=== PATIENT | female | born 1990 | race Caucasian/White ===

== ENCOUNTER 2016-12-22 08:37 | Emergency (ER) | payer BC, OTHER ==
[~2016-12-22] VITALS: Ht 167.6 cm; Wt 77.1 kg
[~2016-12-22 08:37] MED LIST: MTR600X PO
[2016-12-22 08:58] VITALS: TEMP 36.9; Ht 167.6 cm; Wt 77.1 kg
--- NOTE | 2016-12-22 09:50 | EMERGENCY ROOM VISIT NOTE ---
History Report prepared by Charla: Jeanna Funk Under the Supervision of: Dr. Julio Dewitt M.D. First contact with patient: 09:23 Chief Complaint: BACK INJURY Stated Complaint: LOW BACK PAIN, W/HERNIATED DISC History of Present Illness The patient is a 26 year old female who presents to the Emergency Room with complaints of persistent back pain that worsened over the past two weeks. She currently rates her discomfort as a 7/10 in severity. The patient states that she is currently 20 weeks and states that this is her second . She states that with her first she did not experiencing back pain. The patient states that she has a known herniated disc at L5/S1. She states that she has been told to put off having surgery as long as possible due to her young age. The patient states that she was 21 when she had experienced her injury. She states that she has experienced leg numbness, and she has become concerned about falling. The patient additionally reports vaginal pain. She denies any urinary symptoms. The patient denies any vaginal bleeding or trouble with her . She states that the only thing that has helped to alleviate her pain is kneeling on her hand and knees and hanging her abdomen down. Source of History: patient Onset: past two weeks Position: back Symptom Intensity: 7/10 Timing: other (persistent) Associated Symptoms: + numbness (legs), No urinary symptoms Note: Associated Symptoms: vaginal pain Review of Systems See HPI for pertinent positives & negatives. A total of 10 systems reviewed and were otherwise negative. Past Medical & Surgical Medical Problems: (1) Abdominal pain (2) Abdominal pain (3) Abdominal pain affecting (4) Back pain affecting in third trimester (5) High blood pressure affecting in third trimester, antepartum (6) (7) uterine contractions in third trimester, antepartum (8) Uterine contractions at greater than 20 weeks of gestation Family History No significant family history Social History Smoking Status: Former Smoker Alcohol Use: occasionally Marital Status: single Housing Status: lives with family Occupation Status: employed Current/Historical Medications Scheduled Multivit/Min/Iron/Fol Ac/Pren ( Vitamin), 1 TAB PO DAILY Allergies Coded Allergies: No Known Allergies (Unverified , 12/22/16) Physical Exam Vital Signs Date Time Temp Pulse Resp B/P (MAP) Pulse Ox O2 Delivery O2 Flow Rate FiO2 12/22/16 10:45 83 16 117/70 96 Room Air 12/22/16 08:58 36.9 105 16 131/81 98 Room Air Physical Exam GENERAL: Patient is in no acute distress. HEENT: No acute trauma, normocephalic atraumatic, mucous membranes moist, no nasal congestion, no scleral icterus. NECK: No stridor, no adenopathy, no meningismus, trachea is midline. LUNGS: Clear to auscultation bilaterally, no wheeze, no rhonchi, breath sounds equal. HEART: Without murmurs gallops or rubs, regular rate and rhythm. ABDOMEN: Gravid uterus. Soft, nontender, bowel sounds positive, no hernias, no peritonitis. BACK: Pain worsens with movement EXTREMITIES: No cyanosis or edema, full range of motion of all the joints without pain or difficulty, no signs for acute trauma. NEUROLOGIC: Oriented x 3, no acute motor or sensory deficits, no focal weakness. 2/4 patellar and Achilles reflexes bilaterally. SKIN: No rash, no jaundice, no diaphoresis. Medical Decision & Procedures ER Provider Diagnostic Interpretation: heart tones are 145. Radiology results as stated below per my review and radiologist interpretation: MRI LUMBAR SPINE W/O CONTRAST CLINICAL HISTORY: Back pain with right leg radiculopathy and weakness. . TECHNIQUE: Sagittal and axial T1, T2 and STIR images were obtained. COMPARISON STUDY: Conventional radiographic study dated 05/08/2012 OBSERVATIONS: Campaign Specialist images reveal mild to moderate right-sided hydronephrosis. There is a gravid uterus. The vertebral bodies and posterior elements appear intact. There is no abnormal bony signal present to suggest a marrow replacement process. L1-2: No disc protrusions or extrusions. No evidence of spinal canal or neural foraminal compromise. L2-3: No disc protrusions or extrusions. No evidence of spinal canal or neural foraminal compromise. L3-4: No disc protrusions or extrusions. No evidence of spinal canal or neural foraminal compromise. L4-5: No disc protrusions or extrusions. No evidence of spinal canal or neural foraminal compromise. L5-S1: There is an annular fissure and small central disc protrusion. There is about the anterior thecal sac. There is no foraminal stenosis. The conus medullaris and cauda equina appear normal. IMPRESSION: 1. Mild to moderate right-sided hydronephrosis 2. Gravid uterus 3. Annular fissure and small central disc protrusion at the L5-S1 level. Electronically signed by: Wyatt Gillette M.D. 12/22/2016 11:43 AM Dictated Date/Time: 12/22/2016 11:38 AM Laboratory Results Urine dip shows trace WBCs, no convincing evidence for infection ED Course 0924: The patient was evaluated in room B5. A complete history and physical exam was performed. 0951: I discussed the patient's case with Dr. Salmon, [facility]. He states that it would be nice to have an image of the patient's back. He suggesting talking radiology about an MRI. He additionally notes that the first step is pain management, noting that surgery would not be an option since the patient is . 0956: I discussed the patients case with Dr. Gillette, Radiology. He states that it would be fine for the patient to have an MRI. 1005: I reevaluated the patient and she is agreeable to the MRI. 1156: I reevaluated the patient and she is resting. I discussed the exam findings with her and I discussed the treatment plan. She verbalized complete understanding and agreement. The patients case will be consulted with basting cleaner. 1158: I discussed the patients case with Mike Olivares basting cleaner. He states that the patient is okay to go home. 1206: I reevaluated the patient and she is resting. I discussed the treatment plan with her and she verbalized complete understanding and agreement. She is ready to go home shortly. Medical Decision The patient is a 26 year old female who presents to the ED with complaints of back pain. Differential diagnoses considered include UTI, herniated disc, back pain from , fracture, labor. The patient presents with lower back pain with some radiation of pain and some numbness in her legs, especially on the right. Her reflexes were intact and equal bilaterally. Urine dip did not suggest infection. heart tones were normal. She's had no vaginal bleeding, no fever, no true fall. I discussed her case with the on-call spinal surgeon. An MRI was recommended and performed. There is a small disc herniation in the L5-S1 area. The patient is aware of her findings. No emergent process was noted by MRI. I suspect her pain is from the disc herniation coupled with the . The patient was reassured. She is being discharged with conservative measures. Tylenol, heat, physical therapy were recommended. She will follow with the spinal surgeon in the outpatient office and return here for worsening symptoms. Medication Reconcilliation Current Medication List: was personally reviewed by me Consults Time Called: [phone] Consulting Physician: Handy Jackson Returned Call: [phone] I discussed the patient's case with Handy Jackson. He states that it would be nice to have an image of the patient's back. He suggesting talking radiology about an MRI. He additionally notes that the first step is pain management, noting that surgery would not be an option since the patient is . Additional Consults: Time Called: 954 Consulted Physician: Dr. Gillette, Radiology Returned Call: [phone] Additional Comments: I discussed the patients case with Dr. Gillette, Radiology. He states that it would be fine for the patient to have an MRI. Time Called: 1158 Consulted Physician: Mike Olivares basting cleaner Returned Call: [phone] Additional Comments: I discussed the patients case with Mike Olivares basting cleaner. He states that the patient is okay to go home. Impression Primary Impression: Lower back pain Additional Impressions: Sciatica Scribe Attestation The scribe's documentation has been prepared under my direction and personally reviewed by me in its entirety. I confirm that the note above accurately reflects all work, treatment, procedures, and medical decision making performed by me. Departure Information Dispostion Home / Self-Care Referrals No Doctor, Assigned (PCP) Forms HOME CARE DOCUMENTATION FORM, IMPORTANT VISIT INFORMATION Patient Instructions My [facility] Additional Instructions tylenol for pain heat may help see tessy henley this week--may benefit from physical therapy referral call and set up appt with Dr. Salmon's office return if worsening Problem Qualifiers
--- NOTE | 2016-12-22 11:44 | DIAGNOSTIC IMAGING REPORT ---
MRI LUMBAR SPINE W/O CONTRAST CLINICAL HISTORY: Back pain with right leg radiculopathy and weakness. . TECHNIQUE: Sagittal and axial T1, T2 and STIR images were obtained. COMPARISON STUDY: Conventional radiographic study dated 05/08/2012 OBSERVATIONS: Unemployment Examiner images reveal mild to moderate right-sided hydronephrosis. There is a gravid uterus. The vertebral bodies and posterior elements appear intact. There is no abnormal bony signal present to suggest a marrow replacement process. L1-2: No disc protrusions or extrusions. No evidence of spinal canal or neural foraminal compromise. L2-3: No disc protrusions or extrusions. No evidence of spinal canal or neural foraminal compromise. L3-4: No disc protrusions or extrusions. No evidence of spinal canal or neural foraminal compromise. L4-5: No disc protrusions or extrusions. No evidence of spinal canal or neural foraminal compromise. L5-S1: There is an annular fissure and small central disc protrusion. There is about the anterior thecal sac. There is no foraminal stenosis. The conus medullaris and cauda equina appear normal. IMPRESSION: 1. Mild to moderate right-sided hydronephrosis 2. Gravid uterus 3. Annular fissure and small central disc protrusion at the L5-S1 level. Electronically signed by: Wyatt Gillette M.D. 12/22/2016 11:43 AM Dictated Date/Time: 12/22/2016 11:38 AM
[2016-12-22 12:32] VITALS: BP 124/87; PULSE 84; O2SAT 99
[2016-12-22] MEDS ORDERED: PRENTAB26 PO (21:03)
== END 2016-12-22 12:32 | disposition home or self-care (01) ==
LOC: C.EDB 08:39
DX: O26.892 Other specified pregnancy related conditions, second trimester (principal); M51.17 Intervertebral disc disorders with radiculopathy, lumbosacral region; O34.512 Maternal care for incarceration of gravid uterus, second trimester; Z3A.20 20 weeks gestation of pregnancy; Z87.891 Personal history of nicotine dependence; Z72.89 Other problems related to lifestyle

== ENCOUNTER 2017-02-10 15:38 | Outpatient (CLI) | payer OTHER ==
[~2017-02-10 15:38] MED LIST changes: -MTR600X PO; +PRENTAB26 PO
[2017-02-10] MEDS ORDERED: TERBUTALINE SULFATE 1 MG/ML VIAL ONE (16:10)
[2017-02-10] MEDS ORDERED: LACTATED RINGER'S 1000ML 500 ML IV ONE (16:11)
[2017-02-10] MEDS ORDERED: LACTATED RINGER'S 1000ML 1,000 ML IV SCH (16:11)
[2017-02-10] MEDS: TERBUTALINE SULFATE 1 MG/ML VIAL SQ PRN ×2 (16:27→17:25)
[2017-02-10] MEDS ORDERED: NIFEdipine 10 MG CAP PO STA (17:25)
[2017-02-10] MEDS ORDERED: BETAMETH SOD PHOS/ACETATE IA 6 MG/ML IM SCH (17:30)
--- NOTE | 2017-02-10 18:01 | Progress Note ---
Progress Note Date of Service Feb 10, 2017. Progress Note Pt seen and evaluated for PTL pt was seen in the office and FFN done but [place] [facility] [place] arrival to [place], pt had ctx 2-3mins Received 2 doses of Turb. 0.25mg SQ ctx improved with turb and IVH Pt given 1 dose of BMTX Pt started on Procardia VE in office is unchanged from office exam D/c home with instrcutions RTc for 2nd dose BMTZ
[2017-02-10] MEDS ORDERED: NIFE10CA20 PO (18:02)
--- NOTE | 2017-02-10 18:04 | Discharge Instructions ---
Discharge Instructions Date of Service Feb 10, 2017. Admission Reason for Admission: Check Pre Term Labor Discharge Discharge Diagnosis / Problem: PTL Discharge Goals Goal(s): Continuing OB care Activity Recommendations Activity Limitations: as noted below SPECIAL CARE INSTRUCTIONS: Call Doctor if: * Regular contractions every 5 minutes or greater than contractions in one hour. * Bleeding * Water breaks or is leaking * Decreased movement * Fever >100.4 degrees F * Pain not relieved by routine measures or pain medication ordered. FOLLOW UP VISIT: Return to Labor and Delivery on for /call for appointment time . Follow-up Visit with: When: . Current Hospital Diet Patient's current hospital diet: Discharge Diet Recommended Diet: Regular Diet Pending Studies Studies pending at discharge: no Medical Emergencies . Who to Call and When: Medical Emergencies: If at any time you feel your situation is an emergency, please call 911 immediately. . Non-Emergent Contact Non-Emergency issues call your: Specialist . . "Provider Documentation" section prepared by Dung Anaya. . VTE Core Measure Inpt VTE Proph given/why not?: Treatment not indicated
[2017-02-10] MEDS ORDERED: NIFEdipine 10 MG CAP PO SCH ×2 (22:00)
== END 2017-02-10 19:05 | disposition home or self-care (01) ==
LOC: C.OPB 15:38 → C.LD 15:38 → C.OPB 19:05
PROVIDERS: ATTEND Obstetrics & Gynecology
DX: O60.00 Preterm labor without delivery, unspecified trimester (principal); Z3A.00 Weeks of gestation of pregnancy not specified

== ENCOUNTER 2017-02-11 17:18 | Outpatient (CLI) | payer OTHER ==
[~2017-02-11 17:18] MED LIST changes: +NIFE10CA20 PO
[2017-02-11] MEDS ORDERED: BETAMETH SOD PHOS/ACETATE IA 6 MG/ML ONE (17:25)
--- NOTE | 2017-02-13 12:11 | EDITING REQUIRED CODING QUERY ---
DIAGNOSIS NEEDED To promote full compliance with coding requirements relating to patient care, physician participation is requested in all cases of band saw operator uncertainty. Please assist us with the question(s) below: Coding Question: The patient received care in labor and delivery on 02/11/17 as noted within the record. Please document the diagnosis that is being addressed by the medication/treatment. Provider Response: DIAGNOSIS: contractions. Thank you for your assistance, Shannon Orozco - Risk Prevention Engineer
== END 2017-02-11 17:36 | disposition home or self-care (01) ==
LOC: C.OPB 17:18 → C.LD 17:18 → C.OPB 17:36
PROVIDERS: ATTEND Obstetrics & Gynecology
DX: O62.9 Abnormality of forces of labor, unspecified (principal); Z3A.00 Weeks of gestation of pregnancy not specified

== ENCOUNTER 2017-03-31 03:41 | Inpatient (IN) | payer OTHER ==
[~2017-03-31] VITALS: Ht 170.2 cm; Wt 90.9 kg
[2017-03-31 04:24] VITALS: Ht 170.2 cm; Wt 90.9 kg
[2017-03-31] MEDS ORDERED: NURSING VERBAL MED ORDER ONE ×2 (04:30→04:45)
[2017-03-31] MEDS ORDERED: PENICILLIN G POTASSIUM IV 6 MU in DEXTROSE 5% 250ML IV STA (04:31)
[2017-03-31] MEDS ORDERED: EpHEDrine SULFATE INJ 50 MG/ML AMP ONE (04:32)
[2017-03-31] MEDS ORDERED: FENTANYL CITRATE INJ 50 MCG/1 ML 2 ML VIAL ONE (04:32)
[2017-03-31] MEDS ORDERED: BUPIVACAINE 0.25% 30 ML VIAL ONE (04:32)
[2017-03-31] MEDS ORDERED: FENTANYL 2MCG/ML ROPIV 1.25MG/ML 100ML BAG EPI ONE (04:33)
[2017-03-31 04:43] LABS: HEMATOCRIT 39.4 % (37-47); HEMOGLOBIN 13.2 g/dL (12.0-16.0); MEAN CELL VOLUME 88.1 fL (80-100); MEAN CORPUSCULAR HEMOGLOBIN 29.5 pg (25-34); MEAN CORPUSCULAR HGB CONC 33.5 g/dl (32-36); MEAN PLATELET VOLUME 10.3 fL (7.4-10.4); PLATELET COUNT 205 K/uL (130-400); RED CELL DISTRIBUTION WIDTH CV 13.8 % (11.5-14.5); RED CELL DISTRIBUTION WIDTH SD 44.7 fL (36.4-46.3); WHITE BLOOD COUNT 12.81 K/uL (4.8-10.8)
[2017-03-31] MEDS ORDERED: PENICILLIN G POTASSIUM IV 3 MU in DEXTROSE 5% 100ML IV PRN (04:45)
[2017-03-31] MEDS ORDERED: LACTATED RINGER'S 1000ML 1,000 ML IV STA (04:49)
[2017-03-31] MEDS ORDERED: LACTATED RINGER'S 1000ML 1,000 ML IV SCH (05:00)
--- NOTE | 2017-03-31 05:33 | Progress Note ---
Progress Note Date of Service Mar 31, 2017. Progress Note Admit Note 26 [id number] 40.1 weeks admitted to L&D in active labor. Cervix 4-5/90/-2/ vertex. GBS is positive with NKA. FHT Cat 1. Will admit in labor. Planning for epidural.
[2017-03-31] MEDS ORDERED: LACTATED RINGER'S 1000ML 500 ML IV PRN (05:48)
[2017-03-31] MEDS ORDERED: NALOXONE HCL INJ 1 MG in SODIUM CHLORIDE 0.9% 1000ML 1,000 ML IV PRN (05:48)
[2017-03-31] MEDS ORDERED: NALBUPHINE HCL INJ 10 MG/ML AMP IV PRN (06:00)
[2017-03-31] MEDS ORDERED: EpHEDrine SULFATE INJ 50 MG/ML AMP IV PRN (06:00)
[2017-03-31] MEDS ORDERED: NALOXONE HCL INJ 0.4 MG/1 ML VIAL/CARP IV PRN (06:00)
[2017-03-31] MEDS ORDERED: PROMETHAZINE HCL INJ 6.25 MG in SODIUM CHLORIDE 0.9% 50ML 50 ML IV PRN (06:00)
[2017-03-31] MEDS ORDERED: ONDANSETRON INJ 2 MG/ML 2 ML VIAL IV PRN (06:00)
[2017-03-31] MEDS ORDERED: DiphenhydrAMINE HCL 50 MG/ML VIAL IV PRN (06:00)
[2017-03-31] MEDS: FENTANYL 2MCG/ML ROPIV 1.25MG/ML 100ML BAG EPI PRN ×2 (06:41→06:59)
[2017-03-31] MEDS ORDERED: OXYTOCIN 30 UNITS/500ML NSS IV ONE (09:30)
[2017-03-31] MEDS ORDERED: HYDROCORTISONE ACETATE 25 MG SUPP PR PRN (10:00)
[2017-03-31] MEDS ORDERED: ACETAMINOPHEN 325 MG TAB PO PRN (10:00)
[2017-03-31] MEDS ORDERED: SUPERCREAM 0.870 % 15GM JAR EXT PRN (10:00)
[2017-03-31] MEDS ORDERED: OXYCODONE/ACETAMINOPHEN 5-325 TAB PO PRN (10:00)
[2017-03-31] MEDS ORDERED: DIPHTHERIA/TETANUS/PERTUSSIS 0.5 ML SYR/VIAL IM. ONE (10:00)
[2017-03-31] MEDS ORDERED: OXYTOCIN 30 UNITS/500ML NSS IV PRN (10:00)
[2017-03-31] MEDS ORDERED: BENZOCAINE 20% AER SPR 82.5 GM CAN EXT PRN (10:00)
[2017-03-31] MEDS ORDERED: LANOLIN OINT EXT PRN (10:00)
--- NOTE | 2017-03-31 10:16 | DELIVERY SUMMARY ---
DATE OF OPERATION: 03/31/2017 TIME OF DELIVERY: 9:48 a.m. TIME OF PLACENTA DELIVERY: 9:49 a.m. DELIVERY NOTE: The patient is a 27-year-old 2, para 1 at 40 weeks and 1 days gestation who was admitted to labor and delivery on the morning of 03/31/2017 in active labor. She received an epidural for anesthesia. She reached complete dilation at 9:30 a.m. Artificial rupture of membranes was performed with clear amniotic fluid noted. She pushed to delivery at 9:48 a.m. She delivered a viable male infant in the right occiput anterior position to an intact perineum. The baby was delivered and placed on the patient's abdomen. The cord was clamped x2 and cut. Apgars were 9 at 1 minute and 9 at 5 minutes. Please see nursing notes for further baby assessment. Cord blood was then obtained and intact placenta with 3-vessel cord was delivered. Oxytocin infusion was then begun. The lower uterine segment and vagina was clear of any blood clots or debris. Exploration of the perineum noted no lacerations. Estimated blood loss was 250 mL. All sponge and instrument counts were found to be correct x2. Both patient and baby tolerated the delivery well and were in recovery with stable vital signs. I attest to the content of the Intraoperative Record and any orders documented therein. Any exception s are noted below.
--- NOTE | 2017-03-31 10:43 | Anesthesia Procedure Note ---
Anesthesia Epidural Removal Nt Date & Time Mar 31, 2017 at 10:43 Vital Signs Pain Intensity: 0.0 Notes Mental Status: alert / awake / arousable, participated in evaluation Nausea / Vomiting: adequately controlled Pain: adequately controlled Airway Patency, RR, SpO2: stable & adequate BP & HR: stable & adequate Hydration State: stable & adequate Neuraxial Anesthesia: was administered Anesthetic Complications: no major complications apparent, pt satisfied with anesthetic care Epidural: removed without complications, with tip intact
[2017-03-31 13:12] VITALS: BP 135/82; PULSE 90; TEMP 37.2; O2SAT 97
[2017-03-31 15:35] VITALS: BP 126/79; PULSE 82; TEMP 37.2; O2SAT 96; O2SAT 97
[2017-03-31] MEDS: IBUPROFEN 600 MG TAB PO PRN ×2 (16:09→20:13)
[2017-03-31 20:00] VITALS: BP 117/74; PULSE 74; TEMP 37.1; O2SAT 97
[2017-03-31] MEDS: DOCUSATE SODIUM 100 MG CAP PO SCH (20:12)
[2017-04-01 00:15] VITALS: BP 113/70; PULSE 75; TEMP 36.4
[2017-04-01 04:00] VITALS: BP 115/70; PULSE 77; TEMP 36.7
[2017-04-01 07:25] VITALS: BP 135/72; PULSE 74; TEMP 37; O2SAT 98
[2017-04-01 07:29] LABS: HEMATOCRIT 36.5 % (37-47); HEMOGLOBIN 12.1 g/dL (12.0-16.0)
[2017-04-01] MEDS ORDERED: FERROUS SULFATE 325 MG TAB PO SCH (08:00)
[2017-04-01] MEDS ORDERED: PRENATAL VITAMIN TAB PO SCH (08:00)
[2017-04-01] MEDS: DOCUSATE SODIUM 100 MG CAP PO SCH (08:20)
[2017-04-01] MEDS: IBUPROFEN 600 MG TAB PO PRN (08:21)
--- NOTE | 2017-04-01 09:44 | OB/GYN Progress Note ---
HOSPITAL TRAY SERVICE WORKER Progress Note Date of Service Apr 01, 2017. Subjective conversation w/ patient, physical exam Ambulation: ambulating normally Voiding: no voiding problems Passing Gas: Yes Diet Tolerance: Regular Diet Lochia: Moderate Feeding Type: Breast Feeding Review of Systems Constitutional: No fever, No chills, No sweats, No weight loss, No weakness, No fatigue, No problem reported Respiratory: No cough, No sputum, No wheezing, No shortness of breath, No dyspnea on exertion, No dyspnea at rest, No hemoptysis, No problem reported Cardiac: No chest pain, No orthopnea, No PND, No edema, No claudication, No palpitations, No problem reported Breast: No see HPI, No breast lump, No change in shape, No nipple discharge, No breast pain, No problem reported Abdomen: No pain, No nausea, No vomiting, No diarrhea, No constipation, No GI bleeding, No problem reported Female : No see HPI, No dysuria, No urinary frequency, No hematuria, No incontinence, No abnormal vaginal bleeding, No vaginal discharge, No problem reported Objective Vital Signs Date Time Temp Pulse Resp B/P (MAP) Pulse Ox O2 Delivery O2 Flow Rate FiO2 04/01/17 07:25 98 Room Air 04/01/17 07:25 37.0 74 16 135/72 (93) 98 Room Air 04/01/17 04:00 36.7 77 18 115/70 (85) Room Air 04/01/17 00:15 Room Air 04/01/17 00:15 36.4 75 18 113/70 (84) Room Air 03/31/17 20:00 37.1 74 18 117/74 (88) 97 Room Air 03/31/17 15:35 97 Room Air 03/31/17 15:35 37.2 82 20 126/79 (95) 96 Room Air 03/31/17 13:12 37.2 90 20 135/82 (99) 97 Room Air 03/31/17 13:12 97 Room Air Physical Exam General Appearance: WELL-APPEARING, WD/WN, NO APPARENT DISTRESS Respiratory/Chest: chest non-tender, lungs clear, normal breath sounds Cardiovascular: regular rate, rhythm, no edema, no gallop Abdomen: normal bowel sounds, non tender, soft Fundus: Firm Extremities: normal range of motion, non-tender, normal inspection Laboratory Results Last 24 Hours Test 04/01/17 07:19 Hemoglobin 12.1 g/dL Hematocrit 36.5 % Assessment and Plan Day Number: 1 Continue Routine Care: PPD #1 pt doing well wishes to go home PM today
[2017-04-01] MEDS ORDERED: MTR600X PO (09:45)
--- NOTE | 2017-04-01 09:46 | Discharge Instructions ---
Discharge Instructions Date of Service Apr 01, 2017. Admission Reason for Admission: LABOR Discharge Discharge Diagnosis / Problem: Discharge Goals Goal(s): Continuing OB care Activity Recommendations Activity Limitations: as noted below ACTIVITY RECOMMENDATIONS: * Gradual return to full activity over the next 2-3 weeks. * No lifting - nothing heavier than baby over the next 2-3 weeks. * Do not engage in vigorous exercise, sexual activity or sports until cleared by your physician. * Do not drive or operate any motorized equipment until cleared by your physician. * You may shower/bathe daily. BREAST CARE: If you are not breast feeding: * Wear a supportive bra 24 hours a day for one to two weeks. * Avoid stimulating your breasts and nipples as much as possible during the first few weeks after delivery. * When taking a shower, have the warm water hit your back, not breasts. * When your breasts feel full, apply ice packs. Usually three to four times a day helps ease the discomfort. * Take a mild pain medication (Tylenol/Motrin) when you are uncomfortable. If breast feeding: * Use breast milk to lubricate nipples. Lansinoh cream may be used for sore nipples. You do not need to remove cream prior to breast feeding. If using a different brand of cream, check the label for directions regarding removal of cream prior to nursing. * Wear a supportive bra. * If having problems with breasts or breast feeding, call a software sales consultant or your health care provider. EPISIOTOMY CARE: After delivery, if you have an episiotomy (stitches), the following steps will ease discomfort and aid healing. * For the first 24 hours after delivery, place ice packs next to your episiotomy to help reduce swelling. * After the first 24 hour-period, sitz baths, either portable or in the tub, are suggested. A shower with a shower arm sprayed over the episiotomy may be comforting. * [place] care should be done after each voiding and bowel movement. Squirt warm water from a plastic bottle over the perineum (region of the body between the anus and urinary opening) and pat dry. * Use Dermoplast to ease discomfort. Shake container. [place] directly over the episiotomy. * Place a Tucks on a clean sanitary pad next to your episiotomy. OVER THE COUNTER MEDICATION: * For discomfort or pain, you may use Acetaminophen (Tylenol), Ibuprofen (Advil ), or Naproxen (Aleve) following the package directions. * For constipation you may use Colace following the package directions. SPECIAL CARE INSTRUCTIONS: When you are discharged from the hospital, it is important for you to follow the instructions listed below: * During the first week at home, you should be able to care for yourself and your baby. In addition, the usual light household activities are encouraged. * Limit your activities to the way you feel. Do not try to clean the house or move furniture. Be sensible. * If you actively engage in sports and have done so up until the time of your delivery, you may resume these activities as soon as you feel able. This may take up to one month or even longer. Use good judgment. * Continue to take your vitamins for at least six weeks after the of your baby. * Your diet need not be limited unless you were on a special diet before your delivery. Breast-feeding mothers need around 2500 calories per day and at least 64-80 ounces of fluid per day (8 to 10 glasses). * You should eat foods from the four major food groups. Crash diets or fad diets are to be avoided. Eating lean meats, fresh fruits and vegetables, low-fat dairy products, high fiber foods and a regular exercise program, will help you get back to your pre- weight without putting your health at risk. * Constipation is sometimes a problem after delivery. Take a mild laxative as needed. If breast feeding, Milk of Magnesia is acceptable to use. You may use a suppository or Fleets enema if no episiotomy. * A daily shower or tub bath is suggested. Be sure to thoroughly and gently dry the perineum. * A bloody vaginal discharge will usually continue until around four weeks post . A small amount of bleeding may continue for as long as six weeks. Vaginal discharge changes from the bright red bleeding after delivery to pink then brownish and finally yellowish-pink before becoming white and disappearing. * Bleeding may increase with activity. Your first period may come in 4-8 weeks. If you are breast feeding, your period may be delayed even longer. * [place] (sex) can begin whenever both you and your partner feel comfortable and do not have any form of genital infection. It is recommended that you wait until after your return appointment and discuss with your physician. If you have questions, please talk to your health care practitioner. A condom should be used to prevent infection and . * Foreplay, gentle intercourse and lubrication is very important the first several times to prevent pain. A water-based lubricant such as K-Y jelly or Astroglide may be used. * Tampons may be used six weeks after delivery. * Douching should be avoided for 6 weeks after delivery. * If you have RH negative blood and your baby is RH positive, you will receive RHOGAM by injection prior to discharge. The nurse will give you a card to keep with you that has the date and place that you received RHOGAM after delivery. * During your care, you had a Rubella screen done to check for the presence of rubella antibodies in your blood. If your test was negative, you will receive a Rubella vaccine prior to discharge. This vaccine may cause a fever, soreness at the injection site and flu-like symptoms. If these symptoms persist, notify your health care practitioner. is not advised for three months after a Rubella vaccine. There is a higher chance of having a baby with defects if conceived within three months of getting the vaccine. * If you were discharged 24 hours from delivery or before 48 hours: Visiting nurses will come to your home 48 hours after discharge to assess you and your baby. The visiting nurse will meet with you while you are in the hospital to arrange a time and get directions to your home. * Verbalizes understanding of car seat law as reviewed with patient nursing. * Car Seat hand-out given and reviewed with patient by nursing. * Shaken baby information reviewed with patient by nursing. Call you doctor if: * Heavy bleeding (saturating several pads an hour) or passing clots the size of your fist. * A fever >101 degrees F (38.3 degrees C) on two occasions four hours apart and/or chills. * Unusual pain in the pelvic or vaginal areas. * "Baby Blues" lasting longer than two weeks. If you have any questions or concerns, call your health care practitioner at . FOLLOW-UP VISIT: * Please call the office at to schedule a 6 week examination. It is important you keep this appointment. * It is important for you to make arrangements for either yearly or twice yearly check-ups thereafter. . Current Hospital Diet Patient's current hospital diet: Regular OB Diet Discharge Diet Recommended Diet: Regular Diet Pending Studies Studies pending at discharge: no Medical Emergencies . Who to Call and When: Medical Emergencies: If at any time you feel your situation is an emergency, please call 911 immediately. . Non-Emergent Contact Non-Emergency issues call your: Specialist . . "Provider Documentation" section prepared by Dung Anaya. . VTE Core Measure Inpt VTE Proph given/why not?: Treatment not indicated
[2017-04-01 15:25] VITALS: BP 105/68; PULSE 62; TEMP 36.9
[2017-04-01 18:30] VITALS: BP_DIAS 68; PULSE 62; TEMP 36.9
[2017-04-01] MEDS ORDERED: BISACODYL 5 MG TABEC PO SCH (20:00)
[2017-04-02] MEDS ORDERED: BISACODYL 10 MG SUPP PR PRN (07:00)
== END 2017-04-01 18:35 | disposition home or self-care (01) | DRG 775 ==
LOC: C.LD 03:41 → C.OPB 03:41 → C.LD 04:21 → C.OBG 13:06
PROVIDERS: ADMIT Obstetrics & Gynecology; ATTEND Obstetrics & Gynecology
PROC: 10E0XZZ Delivery of Products of Conception, External Approach (ICD-10-PCS; principal; 2017-03-31)
DX: O99.824 Streptococcus B carrier state complicating childbirth (principal); Z3A.40 40 weeks gestation of pregnancy; Z37.0 Single live birth